=== PATIENT | female | born 1990 | race Caucasian/White ===

== ENCOUNTER → 2019-04-22 | Outpatient (CLI) | payer OTHER ==
--- NOTE | 2019-04-22 12:47 | XCELERA REPORT ---
[address] [address] Upper Extremity Arterial Evaluation Name: LOLA PENG Age: 28 yrs Gender: Female : 1990 Patient Status: Outpatient Patient Location: Study Date: 04/22/2019 10:13 AM Procedure: A duplex scan of the upper extremity arteries was performed bilaterally. Reason For Study: BRACIAL PLEXUS DISORDER Ordering Physician: TIERA PICKENS Performed By: Getachew Ro Measurements and Calculations Right Left Prox SCLA PSV -152.8cm/sec Mid SCLA PSV -125.0 cm/sec Ax A PSV -121.5 128.9 cm/sec Prox Brach A PSV -105.3 -122.6cm/sec Dist Brach A PSV -102.0 -130.6cm/sec Prox Rad A PSV -71.6 -68.8 cm/sec Dist Rad A PSV 60.9 -72.3 cm/sec Prox Ulnar A PSV -71.9 -66.0 cm/sec Dist Ulnar A PSV 71.9 59.1 cm/sec Ax A PSV -121.5 128.9 cm/sec Dist Brach A PSV -102.0 -130.6cm/sec Dist Rad A PSV 60.9 -72.3 cm/sec Dist Ulnar A PSV 71.9 59.1 cm/sec Mid SCLA PSV -125.0 cm/sec Prox Brach A PSV -105.3 -122.6cm/sec Prox Rad A PSV -71.6 -68.8 cm/sec Prox Ulnar A PSV -71.9 -66.0 cm/sec Right Side Arterial Evaluation Vessel ha smooth, pristine, on carreno scale imaging. Normal velocity and triphasic waveforms noted from the Common Femoral artery to the foreran vessels . PPG's are uniformly multiphasic, bilaterally, at rest and in exaggerated postures. Left Side Arterial Evaluation Vessel ha smooth, pristine, on carreno scale imaging. Normal velocity and triphasic waveforms noted from the Common Femoral artery to the foreran vessels . PPG's are uniformly multiphasic, bilaterally, at rest and in exaggerated postures. Slight diminution of amplitude in position on th left. Interpretation Summary No hemodynamically significant lesions in the bilateral upper extremities, on duplex imaging, at rest. PPG's, including exaggerated postures, are completely normal ,except for slight diminution in amplitude on left, in posture. These findings are not diagnostic of Thoracic outlet syndrome. : TIERA PICKENS, Viraj >
== END ==
LOC: SP 09:42
PROVIDERS: ATTEND Internal Medicine
DX: G54.0 Brachial plexus disorders (principal)
CPT/HCPCS: 93930